=== PATIENT | female | born 1985 | race Caucasian/White ===

== ENCOUNTER 2016-06-09 22:35 | Inpatient (IN) | payer BC ==
[~2016-06-09] VITALS: Ht 167.6 cm; Wt 81.6 kg
[~2016-06-09 22:35] MED LIST: PREN1TAB63
[2016-06-09 22:49] VITALS: BP 129/69; PULSE 84
[2016-06-09 23:00] VITALS: RESP 18; TEMP 98
[2016-06-09] MEDS ORDERED: LACTATED RINGER'S 1000 ML INJ 1,000 ML IV PRN (23:05)
[2016-06-09] MEDS ORDERED: OXYTOCIN 30 UNITS-500ML PREMIX 500 ML IV ONE (23:15)
[2016-06-09] MEDS ORDERED: LIDOCAINE HCL 1% 50 ML VIAL I-DERMAL PRN (23:15)
[2016-06-09] MEDS ORDERED: MINERAL OIL 10 ML VIAL TOPICAL PRN (23:15)
[2016-06-09] MEDS ORDERED: CITRIC ACID-SODIUM CITRATE LIQ 30 ML UDC PO SCH (23:15)
[2016-06-09] MEDS ORDERED: LIDOCAINE HCL 1% 50 ML VIAL INFIL PRN (23:15)
[2016-06-09] MEDS ORDERED: ONDANSETRON HCL 4 MG/2 ML VIAL IV PRN (23:15)
[2016-06-09] MEDS ORDERED: SODIUM CHLORID 0.9% 500 ML INJ 500 ML IV PRN (23:15)
[2016-06-09 23:19] LABS: AUTOMATED NEUTROPHIL # 10.3 TH/MM3 (1.8-7.7); BASOPHIL # 0.1 TH/MM3 (0-0.2); BASOPHIL % 0.6 % (0.0-2.0); EOSINOPHIL % 0.1 % (0.0-4.0); HEMO FLAGS DIFF FINAL; LYMPH % 10.3 % (9.0-44.0); LYMPHOCYTE # 1.3 TH/MM3 (1.0-4.8); MEAN CELL VOLUME 86.9 FL (80.0-100.0); MEAN CORPUSCULAR HEMOGLOBIN 29.5 PG (27.0-34.0); MONO % 5.9 % (0.0-8.0); NEUT % 83.1 % (16.0-70.0); PLATELET COUNT 147 TH/MM3 (150-450); RED BLOOD COUNT 4.25 MIL/MM3 (4.00-5.30); RED CELL DISTRIBUTION WIDTH 14.2 % (11.6-17.2); WHITE BLOOD COUNT 12.5 TH/MM3 (4.0-11.0)
[2016-06-09] MEDS ORDERED: SODIUM CHLOR 0.9% 1000 ML INJ 1,000 ML IV PRN (23:25)
[2016-06-09 23:31] LABS: BACTERIA, URINE RARE /hpf; BLOOD, URINE NEG (NEG); COMMENT (UR) CULT NOT INDICATED; CULTURE IF INDICATED CULT NOT INDICATED; GLUCOSE,URINE NEG (NEG); KETONE, URINE NEG (NEG); NITRITE,URINE NEG (NEG); PH, URINE 6.5 (5.0-8.5); SQUAMOUS EPITHELIAL CELL URINE <1 /hpf (0-5); URINE COLOR LIGHT-YELLOW (YELLW/STRAW)
--- NOTE | 2016-06-09 23:47 | PD ---
HPI Chief Complaint Labor pain Date Seen: Jun 09, 2016 Travel History International Travel<30 Days: No Contact w/Intl Traveler<30Days: No Known Affected Area: No History of Present Illness HPI Liz is a 30-year-old white female at 40 weeks gestation since complaining of contractions denies bleeding or rupture the membranes heart rate tracing is reactive contractions are regular. She is [facility] by [facility]. Para: 0 : 1 History Past Medical History Medical History: Denies Significant Hx Allergies-Medications (Allergen,Severity, Reaction): Coded Allergies: No Known Allergies (Unverified , 06/09/16) Home Meds Reported Medications Multivit-Min W/Fe-FA ( Vitamins 0.8 mg)1 Tab Tab 04/23/16 Review of Systems General / Constitutional: No: Fever, Weight Gain, Chills, Other Physical Exam Narrative GENERAL: Well-nourished, well-developed patient. SKIN: Warm and dry. HEAD: Normocephalic and atraumatic. EYES: No scleral icterus. No injection or drainage. ENT: No nasal drainage noted. Mucous membranes pink. Airway patent. NECK: Supple, trachea midline. No JVD. CARDIOVASCULAR: Regular rate and rhythm without murmurs, gallops, or rubs. RESPIRATORY: Breath sounds equal bilaterally. No accessory muscle use. BREASTS: Bilateral exam showed no masses , no retractions, no nipple discharge. ABDOMEN/GI: Abdomen soft, non-tender, bowel sounds present, no rebound, no guarding Gravid to [term-] weeks size Fundal Height: [-37 cm] GENITOURINARY: External Genitalia: intact and normal in appearance BUS glands: [-] Cervix: Dilatation: [-5] Effacement: [-80] Station: [-0] Presentation: [-vtx] Membranes: [intact ] Uterine Contractions: [-reg] FHT's: Category: [1-] Baseline: [-144] Reactive: [-yes] Variability: [mod-] Decels: [none-] EXTREMITIES: No cyanosis or edema. BACK: Nontender without obvious deformity. No CVA tenderness. NEUROLOGICAL: Awake and alert. Motor and sensory grossly within normal limits. Five out of 5 muscle strength in all muscle groups. Normal speech. Data Data Orders Ob (2e) Additional Admit Info (06/09/16 23:00) Admit To Inpatient (06/09/16 ) Code Status (06/09/16 23:05) Vital Signs (Adult) .Per protocol (06/09/16 23:05) Activity Oob Ad Kitty (06/09/16 23:05) ^ Heart (06/09/16 23:05) ^ Amnioinfusion (06/09/16 23:05) Urinary Catheter Management .ONCE (06/09/16 23:05) Lactated Ringer's 1000 Ml Inj (Lr 1000 M (06/09/16 23:05) Lactated Ringer's 1000 Ml Inj (Lr 1000 M (06/09/16 23:05) Sodium Chlorid 0.9% 500 Ml Inj (Ns 500 M (06/09/16 23:15) Sodium Chlor 0.9% 1000 Ml Inj (Ns 1000 M (06/09/16 23:25) Lidocaine 1% Inj (50 Ml) (Xylocaine 1% I (06/09/16 23:15) Citric Acid-Sodium Citrate Liq (Bicitra (06/09/16 23:15) Ondansetron Inj (Zofran Inj) (06/09/16 23:15) Fentanyl Inj (Fentanyl Inj) (06/09/16 23:15) Fentanyl Inj (Fentanyl Inj) (06/09/16 23:15) Complete Blood Count With Diff (06/09/16 23:05) Hold Clot (06/09/16 23:05) Abo/Rh Blood Type (06/09/16 23:05) Urinalysis - C+S If Indicated (06/09/16 23:05) Resp Oxygen Non Rebreathe Mask (06/09/16 ) ^ Epidural / Intrathecal Infus (06/09/16 23:05) Oxytocin 30 Units-500ml Premix (Pitocin (06/09/16 23:15) Lidocaine 1% Inj (50 Ml) (Xylocaine 1% I (06/09/16 23:15) Light Mineral Oil (Muri-Lube Oil) (06/09/16 23:15) Inpatient Certification (06/09/16 ) Labs Laboratory Tests Test 06/09/16 06/09/16 22:45 23:05 Urine Color LIGHT-YELLOW Urine Turbidity CLEAR Urine pH 6.5 Urine Specific [place] 1.005 Urine Protein NEG Urine Glucose (UA) NEG Urine Ketones NEG Urine Occult Blood NEG Urine Nitrite NEG Urine Bilirubin NEG Urine Urobilinogen LESS THAN 2.0 Urine Leukocyte Esterase NEG Urine WBC LESS THAN 1 Urine Squamous Epithelial <1 Cells Urine Bacteria RARE Microscopic Urinalysis Comment CULT NOT INDICATED White Blood Count 12.5 Red Blood Count 4.25 Hemoglobin 12.5 Hematocrit 37.0 Mean Corpuscular Volume 86.9 Mean Corpuscular Hemoglobin 29.5 Mean Corpuscular Hemoglobin 34.0 Concent Red Cell Distribution Width 14.2 Platelet Count 147 Mean Platelet Volume 11.6 Neutrophils (%) (Auto) 83.1 Lymphocytes (%) (Auto) 10.3 Monocytes (%) (Auto) 5.9 Eosinophils (%) (Auto) 0.1 Basophils (%) (Auto) 0.6 Neutrophils # (Auto) 10.3 Lymphocytes # (Auto) 1.3 Monocytes # (Auto) 0.7 Eosinophils # (Auto) 0.0 Basophils # (Auto) 0.1 CBC Comment DIFF FINAL Differential Comment MDM Interpretation(s) Patient is 30-year-old white female at 40 weeks gestation presents in labor with regular contractions no bleeding reactive heart rate tracing and cervical dilation of 5-6 cm 80% and 0 station. Membranes intact. She is seen by [facility] Dariela Carrillo Plan Plan to admit for labor evaluation and management in anticipate vaginal delivery Diagnosis Diagnosis: Primary Impression: Abdominal pain complicating Raheem Sutherland II, MD Jun 09, 2016 23:47
[2016-06-10] VITALS (75 sets, daily range): BP systolic 101–152; BP diastolic 54–84; PULSE 56–99; RESP 16–18; TEMP 98.7–100.2; O2SAT 100
--- NOTE | 2016-06-10 00:09 | HHI.HP ---
HPI Date Seen: Jun 09, 2016 Time Seen: 23:15 Travel History International Travel<30 Days: No Contact w/Intl Traveler<30Days: No Known Affected Area: No History of Present Illness HPI 30 y/o at 40/0 presents with contractions. States they started this morning and increased throughout the day. They were about 4 minutes apart. Noticed mucus discharge earlier today with some mild vaginal bleeding. Pain in lower abdomen and back. Endorses pelvic pressure. Reports good movement. Denies loss of fluid. Is GBS negative. Denies headache, blurry vision, RUQ abdominal pain, worsening swelling. No chest pain, SOB, nausea/vomiting. Para: 0 : 1 History Past Medical History Medical History: Denies Significant Hx Obstetric History Obstetric History none Past Surgical History Surgical History: No Previous Surgery Family History Family History: Negative Social History Alcohol Use: No Tobacco Use: No Substance Abuse: No Allergies-Medications (Allergen,Severity, Reaction): Coded Allergies: No Known Allergies (Unverified , 06/09/16) Home Meds Reported Medications Multivit-Min W/Fe-FA ( Vitamins 0.8 mg)1 Tab Tab 04/23/16 Review of Systems Except as stated in HPI: all other systems reviewed are Neg General / Constitutional: Weight Gain, No: Fever, Weight Loss, Chills Eyes: No: Blurred Vision, Visual changes HENT: No: Headaches, Lightheadedness Cardiovascular: No: Irregular Rhythm, Chest Pain or Discomfort Respiratory: No: Cough, Short of Breath Gastrointestinal: No: Nausea, Vomiting, Abdominal Pain Genitourinary: Pelvic Pain, Discharge, Vaginal Bleeding, No: Dysuria Skin: No Rash, No Itching Neurologic: No: Weakness, Dizziness, Syncope, Headache, Slurred Speech, Seizures Psychiatric: No: Anxiety, Depression Physical Exam Narrative GENERAL: Well-nourished, well-developed patient. SKIN: Warm and dry. HEAD: Normocephalic and atraumatic. EYES: No scleral icterus. No injection or drainage. ENT: No nasal drainage noted. Mucous membranes pink. Airway patent. NECK: Supple, trachea midline. No JVD. CARDIOVASCULAR: Regular rate and rhythm without murmurs, gallops, or rubs. RESPIRATORY: Breath sounds equal bilaterally. No accessory muscle use. ABDOMEN/GI: Abdomen soft, non-tender, bowel sounds present, no rebound, no guarding Gravid to 40 weeks size Fundal Height: 40 GENITOURINARY: External Genitalia: intact and normal in appearance Cervix: Posterior Dilatation: 5-6 Effacement: 90 Station: 0 Presentation: vertex Membranes: intact Uterine Contractions: 4 minutes FHT's: Category: 1 Baseline: 150 Reactive: up to 160 Variability: minimal to moderate Decels: none EXTREMITIES: No cyanosis or edema. BACK: Nontender without obvious deformity. No CVA tenderness. NEUROLOGICAL: Awake and alert. Motor and sensory grossly within normal limits. Moving all limbs appropriately. Normal speech. Data Data Vital Signs Reviewed: Yes Orders Ob (2e) Additional Admit Info (06/09/16 23:00) Admit To Inpatient (06/09/16 ) Code Status (06/09/16 23:05) Vital Signs (Adult) .Per protocol (06/09/16 23:05) Activity Oob Ad Kitty (06/09/16 23:05) ^ Heart (06/09/16 23:05) ^ Amnioinfusion (06/09/16 23:05) Urinary Catheter Management .ONCE (06/09/16 23:05) Lactated Ringer's 1000 Ml Inj (Lr 1000 M (06/09/16 23:05) Lactated Ringer's 1000 Ml Inj (Lr 1000 M (06/09/16 23:05) Sodium Chlorid 0.9% 500 Ml Inj (Ns 500 M (06/09/16 23:15) Sodium Chlor 0.9% 1000 Ml Inj (Ns 1000 M (06/09/16 23:25) Lidocaine 1% Inj (50 Ml) (Xylocaine 1% I (06/09/16 23:15) Citric Acid-Sodium Citrate Liq (Bicitra (06/09/16 23:15) Ondansetron Inj (Zofran Inj) (06/09/16 23:15) Fentanyl Inj (Fentanyl Inj) (06/09/16 23:15) Fentanyl Inj (Fentanyl Inj) (06/09/16 23:15) Complete Blood Count With Diff (06/09/16 23:05) Hold Clot (06/09/16 23:05) Abo/Rh Blood Type (06/09/16 23:05) Urinalysis - C+S If Indicated (06/09/16 23:05) Resp Oxygen Non Rebreathe Mask (06/09/16 ) ^ Epidural / Intrathecal Infus (06/09/16 23:05) Oxytocin 30 Units-500ml Premix (Pitocin (06/09/16 23:15) Lidocaine 1% Inj (50 Ml) (Xylocaine 1% I (06/09/16 23:15) Light Mineral Oil (Muri-Lube Oil) (06/09/16 23:15) Inpatient Certification (06/09/16 ) Labs Laboratory Tests Test 06/09/16 06/09/16 22:45 23:05 Urine Color LIGHT-YELLOW Urine Turbidity CLEAR Urine pH 6.5 Urine Specific [place] 1.005 Urine Protein NEG Urine Glucose (UA) NEG Urine Ketones NEG Urine Occult Blood NEG Urine Nitrite NEG Urine Bilirubin NEG Urine Urobilinogen LESS THAN 2.0 Urine Leukocyte Esterase NEG Urine WBC LESS THAN 1 Urine Squamous Epithelial <1 Cells Urine Bacteria RARE Microscopic Urinalysis Comment CULT NOT INDICATED White Blood Count 12.5 Red Blood Count 4.25 Hemoglobin 12.5 Hematocrit 37.0 Mean Corpuscular Volume 86.9 Mean Corpuscular Hemoglobin 29.5 Mean Corpuscular Hemoglobin 34.0 Concent Red Cell Distribution Width 14.2 Platelet Count 147 Mean Platelet Volume 11.6 Neutrophils (%) (Auto) 83.1 Lymphocytes (%) (Auto) 10.3 Monocytes (%) (Auto) 5.9 Eosinophils (%) (Auto) 0.1 Basophils (%) (Auto) 0.6 Neutrophils # (Auto) 10.3 Lymphocytes # (Auto) 1.3 Monocytes # (Auto) 0.7 Eosinophils # (Auto) 0.0 Basophils # (Auto) 0.1 CBC Comment DIFF FINAL Differential Comment Blood Type O NEGATIVE Band and Hold Assessment/Plan Problem List: (1) Abdominal pain complicating (2) 40 weeks gestation of Assessment and Plan 30 y/o at 40/0 presents with contractions. 1) IUP: GBS negative, laboring - Continuous heart tracing: Category 1 - Continuous monitoring for contractions - Plan to perform PROM - Continue expectant management - Pain control with epidural dw Dr. Sutherland Discharge Planning To be determined after delivery Rj Beltrán MD R1 Jun 10, 2016 00:09
[2016-06-10] MEDS ORDERED: fentaNYL 2MCG-BUPIV 0.125% INJ 100 ML ONE (00:11)
[2016-06-10] MEDS ORDERED: ePHEDrine/NS 50 MG/5 ML SYR ONE (00:11)
[2016-06-10] MEDS: LACTATED RINGER'S 1000 ML INJ 1,000 ML IV SCH ×2 (00:23→07:40)
[2016-06-10] MEDS ORDERED: ePHEDrine/NS 50 MG/5 ML SYR IV PRN (00:30)
[2016-06-10] MEDS ORDERED: fentaNYL 2MCG-BUPIV 0.125% INJ 100 ML EPIDURAL SCH (00:30)
[2016-06-10] MEDS ORDERED: NO SYSTEM NARCOTICS XX PRN (00:30)
[2016-06-10] MEDS ORDERED: DO NOT ADMINISTER ANTICOAGULANTS XX PRN (00:30)
--- NOTE | 2016-06-10 07:38 | PD.LABORPN ---
Subjective Subjective 30-year-old white female at 40 weeks gestation followed through [facility] now in labor through the night. She presented 5-6 cm on admission was admitted of had artificial rupture the membranes and was marik regularly. Her heart rate tracing was reactive throughout. Occasionally would have of a heart rate deceleration was sporadic but the variability always was very good. She has had a arrest of labor in the second stage. She achieved cervical cervical dilation and has pushed for greater than 2 hours. Baby is in a persistent OP position and has development of a large amount Of caput and molding.. The head is still at -1 station, caput At +1 station . Situation discussed with family and patient understand the need for section delivery for failure to progress and arrest of labor in the second stage due to persistent OP Objective Vital Signs Vital Signs Date Time Temp Pulse Resp B/P Pulse Ox O2 Delivery O2 Flow Rate FiO2 06/10/16 06:24 18 06/10/16 06:20 98 06/10/16 06:15 69 136/72 06/10/16 06:00 67 135/76 06/10/16 05:59 99.0 18 06/10/16 05:55 69 06/10/16 05:50 66 06/10/16 05:46 67 127/72 06/10/16 05:45 75 06/10/16 05:35 98.7 06/10/16 05:31 72 152/60 06/10/16 05:30 73 06/10/16 05:25 62 06/10/16 05:20 68 06/10/16 05:16 69 130/69 06/10/16 05:15 99 06/10/16 05:15 18 06/10/16 05:10 71 06/10/16 05:00 72 06/10/16 05:00 72 119/66 06/10/16 04:55 76 06/10/16 04:50 76 06/10/16 04:45 70 116/69 06/10/16 04:45 74 06/10/16 04:36 99.3 06/10/16 04:35 70 06/10/16 04:30 78 06/10/16 04:30 74 18 111/68 06/10/16 04:25 68 06/10/16 04:20 79 06/10/16 04:15 70 06/10/16 04:15 86 125/75 06/10/16 04:05 70 06/10/16 04:00 66 06/10/16 04:00 66 118/66 06/10/16 03:55 89 06/10/16 03:50 79 06/10/16 03:47 74 107/61 06/10/16 03:45 72 06/10/16 03:30 113/72 06/10/16 03:30 70 06/10/16 03:30 68 06/10/16 03:25 65 06/10/16 03:20 75 06/10/16 03:15 67 06/10/16 03:15 66 112/69 06/10/16 03:07 99.4 18 06/10/16 03:05 64 06/10/16 03:00 68 112/63 06/10/16 03:00 71 06/10/16 02:55 74 06/10/16 02:50 72 06/10/16 02:45 70 06/10/16 02:45 70 101/66 06/10/16 02:42 18 06/10/16 02:40 75 06/10/16 02:35 74 06/10/16 02:30 74 06/10/16 02:30 74 109/67 06/10/16 02:20 74 06/10/16 02:15 79 06/10/16 02:15 90 132/78 06/10/16 02:01 18 06/10/16 02:00 86 06/10/16 02:00 85 135/84 06/10/16 01:51 18 06/10/16 01:50 87 06/10/16 01:46 83 115/59 06/10/16 01:45 65 06/10/16 01:20 71 06/10/16 01:15 64 112/54 06/10/16 01:15 56 06/10/16 01:00 67 06/10/16 00:45 67 06/10/16 00:30 75 122/70 06/10/16 00:26 18 06/10/16 00:25 83 127/71 06/10/16 00:23 18 06/10/16 00:20 84 135/78 06/10/16 00:15 92 131/83 Objective Pelvic Exam: Cervix: [-] Dilatation: [-] Effacement: [-] Station: [-] Presentation: [-] Membranes: [intact or ruptured] Uterine Contractions: [-] FHT's: Category: [-] Baseline: [-] Reactive: [-] Variability: [-] Decels: [-] Assessment/Plan Problem List: (1) Abdominal pain complicating (2) 40 weeks gestation of Raheem Sutherland II, MD Jun 10, 2016 07:37
[2016-06-10] MEDS ORDERED: ceFAZolin INJ 1,000 MG VIAL ONE (07:43)
[2016-06-10] MEDS ORDERED: OXYTOCIN 10 UNIT/ML AMP ONE (07:43)
[2016-06-10] MEDS ORDERED: MORPHINE SULFATE PF 5 MG/10 ML VIAL ONE (08:59)
[2016-06-10] MEDS ORDERED: OXYTOCIN 30 UNITS-500ML PREMIX 500 ML IV ONE (09:00)
[2016-06-10] MEDS: SODIUM CHLORIDE 0.9% FLUSH 5 ML FLUSH IV SCH ×2 (09:00→21:00)
[2016-06-10] MEDS ORDERED: SIMETHICONE 80 MG CHEWABLE TAB PO PRN (09:00)
[2016-06-10] MEDS ORDERED: DOCUSATE SODIUM 50 MG/SENNA 8.6 MG TAB PO PRN (09:00)
[2016-06-10] MEDS ORDERED: oxyCODONE/ACETAMINOPHEN 5 MG/325 MG TAB PO PRN ×2 (09:00)
[2016-06-10] MEDS ORDERED: KETOROLAC TROMETHAMINE 60 MG/2 ML (IM) VIAL IM PRN (09:00)
[2016-06-10] MEDS ORDERED: ONDANSETRON HCL 4 MG/2 ML VIAL IV PUSH PRN (09:00)
[2016-06-10] MEDS ORDERED: SODIUM CHLORIDE 0.9% FLUSH 5 ML FLUSH IV PRN (09:00)
[2016-06-10] MEDS ORDERED: OXYTOCIN 30 UNITS-500ML PREMIX 500 ML ONE (09:39)
--- NOTE | 2016-06-10 09:41 | MP ---
cc: LYDIA SUTHERLAND MD DATE OF SURGERY: 06/10/2016 PREOPERATIVE DIAGNOSIS: Failure to progress, persistent OP position. POSTOPERATIVE DIAGNOSIS: Failure to progress, persistent OP position. PROCEDURE PERFORMED: Primary low transverse section. SURGEON Dr. Sutherland. INFORMATICS NURSE air analysis technician. ANESTHESIA Epidural. PREOP NOTE The patient is a 30-year-old white female, G1, P0 at 40-weeks gestation, who presented in active labor 5-6 cm. She progressed to complete and pushed for greater than 2 hours with the baby in a persistent OP presentation with development of caput and molding and failure to the presenting part to descend in the pelvis. It was felt that section would be needed for arrest of labor due to persistent OP. PROCEDURE The patient was taken to the operating room and placed in the supine position on the operating table. After adequate epidural anesthesia was administered she was prepped and draped for abdominal surgery. A Pfannenstiel incision was made in the lower abdomen and carried to the fascia sharply. The fascia was dissected off the rectus muscle and rectus split in the midline. The peritoneal cavity was entered sharply and the incision was extended superiorly and inferiorly. The opening was stretched open and the bladder blade placed in the lower edge of the incision. The visceral peritoneum reflected off the lower uterine segment and placed on the bladder blade. A transverse hysterotomy was made and extended bluntly bilaterally and a female infant was delivered and was in a straight up OP position. The baby is female, Apgars 9 and 9, weight 3365 grams. There were no complications of delivery. Cord blood was obtained. Placenta was manually extracted. The uterus was exteriorized and the hysterotomy closed in a running layer of 0-Chromic followed by imbricating suture of the same. Hemostasis was achieved with stick tie. The bladder was reapproximated with a running layer of 2-0 Vicryl. The uterus was elevated and blood suctioned from the cul-de-sac and gutters. The uterus was placed in the peritoneal cavity. The parietal peritoneum was closed in running layer of 2-0 Vicryl. The rectus muscle was reapproximated with stick ties of Chromic. The fascia was then closed with running layer of 0-Vicryl. The skin was closed with 4-0 Monocryl subcuticular stitch. Pressure dressing was applied. Estimated blood loss was 500 ccs. There were no complications. Sponge and needle count were correct x2. The patient was taken to recovery in stable condition. The baby doing well in the baby nursery. MD RANDAL Powers/LIZZY /8:57 AM /9:13 AM
[2016-06-10] MEDS ORDERED: EPIDURAL-DIPHENHYDRAMINE HCL 50 MG/ML VIAL IV PUSH PRN (11:45)
[2016-06-10] MEDS ORDERED: EPIDURAL-NO SYSTEMIC NARCOTICS XX PRN (11:45)
[2016-06-10] MEDS ORDERED: EPIDURAL-DIPHENHYDRAMINE HCL 50 MG CAP PO PRN (11:45)
[2016-06-10] MEDS ORDERED: EPIDURAL-DO NOT ADMINISTER ANTICOAGULANTS XX PRN (11:45)
[2016-06-10] MEDS ORDERED: EPIDURAL-NALOXONE HCL 0.4 MG/ML AMP IV PRN (11:45)
[2016-06-10] MEDS ORDERED: LACTATED RINGER'S 1000 ML INJ 1,000 ML IV SCH (13:58)
[2016-06-10] MEDS ORDERED: OXYTOCIN 30 UNITS-500ML PREMIX 500 ML IV PRN (19:00)
[2016-06-11] MEDS: IBUPROFEN 600 MG TAB PO PRN ×4 (00:13→20:53)
[2016-06-11 05:57] LABS: AUTOMATED NEUTROPHIL # 9.8 TH/MM3 (1.8-7.7); BASOPHIL % 0.2 % (0.0-2.0); EOSINOPHIL % 0.2 % (0.0-4.0); HEMATOCRIT 32.5 % (35.0-46.0); HEMO FLAGS DIFF FINAL; LYMPH % 7.9 % (9.0-44.0); LYMPHOCYTE # 0.9 TH/MM3 (1.0-4.8); MEAN CELL VOLUME 88.2 FL (80.0-100.0); MEAN CORPUSCULAR HEMOGLOBIN 29.9 PG (27.0-34.0); MEAN CORPUSCULAR HGB CONC 33.9 % (32.0-36.0); MONO % 6.1 % (0.0-8.0); NEUT % 85.6 % (16.0-70.0); PLATELET COUNT 128 TH/MM3 (150-450); RED BLOOD COUNT 3.68 MIL/MM3 (4.00-5.30); RED CELL DISTRIBUTION WIDTH 14.7 % (11.6-17.2); WHITE BLOOD COUNT 11.4 TH/MM3 (4.0-11.0)
[2016-06-11 08:00] VITALS: BP 111/68; PULSE 78; RESP 18; TEMP 98.3
[2016-06-11] MEDS: ACETAMINOPHEN 325 MG TAB PO PRN ×3 (08:05→20:53)
--- NOTE | 2016-06-11 10:02 | HHI.OB ---
Subjective Post Operative Day: 1 Remarks Postoperative day number 1. AFVSS overnight. Pain well-controlled. Incision not draining. Decreased lochia. Denies dysuria. No breast tenderness. She is feeding the baby via breast. Appetite good. No nausea or vomiting. Endorses flatus. Denies bowel movement. Ambulating well. Denies calf pain, shortness of breath, or cough. Otherwise, she is doing well this morning and has no other complaints. (Rj Beltrán MD R1) Objective Vitals/I&O Vital Signs Date Time Temp Pulse Resp B/P Pulse Ox O2 Delivery O2 Flow Rate FiO2 06/11/16 08:00 98.3 78 18 111/68 06/11/16 01:50 18 06/10/16 16:50 99.0 82 18 114/66 06/10/16 13:20 99.4 06/10/16 11:25 100.2 75 16 122/70 (Rj Beltrán MD R1) Result Diagram: 06/11/16 0541 Objective Remarks GENERAL: Well-nourished, well-developed patient. CARDIOVASCULAR: Regular rate and rhythm without murmurs, gallops, or rubs. RESPIRATORY: Breath sounds equal bilaterally. No accessory muscle use. ABDOMEN/GI: Abdomen soft, non-tender, bowel sounds present. Incision: Clean, dry and intact. Fundus: Firm, non-tender at umbilicus. GENITOURINARY: Light to moderate bleeding. EXTREMITIES: No cyanosis or edema, non-tender, without signs of DVT. Medications and IVs Current Medications Medications (Trade) Dose Ordered Sig/Chritsoph Route Start Time Stop Time Status Last Admin Lactated Ringer's 1,000 ml @ 125 mls/hr Q8H IV 06/09/16 23:05 06/10/16 07:40 Lactated Ringer's 1,000 ml @ 3,000 mls/hr Q20M PRN IV 06/09/16 23:05 (NS 1000 ml Inj) 1,000 ml @ 100 mls/hr Q10H PRN IV 06/09/16 23:25 (fentaNYL INJ) 50 mcg Q1H PRN IV PUSH 06/09/16 23:15 (fentaNYL INJ) 100 mcg Q1H PRN IV PUSH 06/09/16 23:15 Mineral Oil 10 ml 10 ml UNSCH PRN TOPICAL 06/09/16 23:15 (fentaNYL 2MCG-BUPIV 0.125% INJ) 100 ml @ 0 mls/hr TITRATE EPIDURAL 06/10/16 00:30 06/10/16 07:41 (NS Flush) 2 ml BID IV 06/10/16 09:00 (NS Flush) 2 ml UNSCH PRN IV 06/10/16 09:00 06/11/16 00:14 (Mylicon Chew) 80 mg QID PRN PO 06/10/16 09:00 06/11/16 08:05 (Tylenol) 650 mg Q6H PRN PO 06/10/16 09:00 06/11/16 08:05 (Motrin) 600 mg Q6H PRN PO 06/10/16 09:00 06/11/16 08:05 (Percocet 5-325 Mg) 1 tab Q4H PRN PO 06/10/16 09:00 (Percocet 5-325 Mg) 2 tab Q4H PRN PO 06/10/16 09:00 (Luisa-Colace) 2 tab Q12H PRN PO 06/10/16 09:00 06/11/16 00:13 (M-M-R Ii Inj) 0.5 ml ONCE ONCE SQ 06/11/16 16:00 06/11/16 16:01 (Boostrix Inj) 0.5 ml ONCE ONCE IM 06/11/16 16:00 06/11/16 16:01 (Zofran Inj) 4 mg Q6H PRN IV PUSH 06/10/16 09:00 Miscellaneous Information NO SYSTEMIC NARCOTICS TO BE GIVEN FO... UNSCH PRN XX 06/10/16 11:45 06/11/16 11:44 (Narcan Inj) 0.4 mg UNSCH PRN IV 06/10/16 11:45 06/11/16 11:44 (Benadryl Inj) 25 mg Q6H PRN IV PUSH 06/10/16 11:45 06/11/16 11:44 (Benadryl) 50 mg Q6H PRN PO 06/10/16 11:45 06/11/16 11:44 Miscellaneous Information ALL NURSING DEPARTMENTS UNSCH PRN XX 06/10/16 11:45 06/11/16 11:44 (Rj Beltrán MD R1) Assessment/Plan Problem List: (1) Abdominal pain complicating (2) 40 weeks gestation of Assessment and Plan 30y/o female who is POD#1 s/p CXN. -Continue routine care. -Percocet and Motrin PRN pain. -Encouraged OOB. Advised pelvic rest for 6 wks. Will need a f/u appt. in 1 wk for incision check. -Re: ctrl, she is undecided -D/c in 1-[address] Mojica Discharge Planning In 1-2 days (Rj Beltrán MD R1) Attending Attestation The exam, history, and the medical decision-making described in the above note were completed with the assistance of the resident provider. I reviewed and agree with the findings presented. I attest that I had a efei-tu-nedy encounter with the patient on the same day, and personally performed and documented my assessment and findings in the medical record. (Gladys Mojica MD) Rj Beltrán MD R1 Jun 11, 2016 10:02 Gladys Mojica MD Jun 11, 2016 10:08
[2016-06-11] MEDS ORDERED: MEASLES, MUMPS, RUBELLA VACCINE 0.5 ML VIAL SQ ONE (16:00)
[2016-06-11] MEDS ORDERED: DIPHTH/TETANUS/ACEL PERTUSSIS (BOOSTER) 0.5 ML VIAL/PFS IM ONE (16:00)
[2016-06-11 20:40] VITALS: BP 121/69; PULSE 80; RESP 18; TEMP 98.6
[2016-06-12] MEDS: IBUPROFEN 600 MG TAB PO PRN ×2 (03:07→09:49)
[2016-06-12] MEDS: ACETAMINOPHEN 325 MG TAB PO PRN ×2 (03:07→09:49)
[2016-06-12 04:07] VITALS: RESP 16
[2016-06-12] MEDS ORDERED: IBUP-232 PO (07:15)
[2016-06-12] MEDS ORDERED: OXYC1TAB63 PO (07:15)
[2016-06-12] MEDS ORDERED: SENN1TAB PO (07:15)
[2016-06-12] MEDS ORDERED: SIME80CH PO (07:15)
--- NOTE | 2016-06-12 07:16 | HHI.DCPOC ---
Discharge Care Plan Diagnosis: (1) delivery delivered Goals to Promote Your Health * To prevent worsening of your condition and complications * To maintain your health at the optimal level Directions to Meet Your Goals Take your medications as prescribed Follow your dietary instruction Follow activity as directed Keep your appointments as scheduled Take your immunizations and boosters as scheduled If your symptoms worsen call your PCP, if no PCP go to Urgent Care Center or Emergency Room Smoking is Dangerous to Your Health. Avoid second hand smoke Call the 24-hour hour crisis hotline for domestic abuse at Dave Fuller MD R2 Jun 12, 2016 07:16
--- NOTE | 2016-06-12 08:14 | HHI.OB ---
Subjective Post Operative Day: 2 Remarks Postoperative day number 2. AFVSS overnight. Pain well-controlled. Incision not draining. Decreased lochia. Denies dysuria. No breast tenderness. She is feeding the baby via breast. Appetite good. No nausea or vomiting. Endorses flatus. Denies bowel movement. Ambulating well. Denies calf pain, shortness of breath, or cough. Otherwise, she is doing well this morning and has no other complaints. Objective Vitals/I&O Vital Signs Date Time Temp Pulse Resp B/P Pulse Ox O2 Delivery O2 Flow Rate FiO2 06/12/16 04:07 16 06/12/16 04:07 16 06/11/16 20:40 98.6 18 06/11/16 20:40 80 121/69 Result Diagram: 06/11/16 0541 Objective Remarks GENERAL: Well-nourished, well-developed patient. CARDIOVASCULAR: Regular rate and rhythm without murmurs, gallops, or rubs. RESPIRATORY: Breath sounds equal bilaterally. No accessory muscle use. ABDOMEN/GI: Abdomen soft, non-tender, bowel sounds present. Incision: Clean, dry and intact. Fundus: Firm, non-tender at umbilicus. GENITOURINARY: Light to moderate bleeding. EXTREMITIES: No cyanosis or edema, non-tender, without signs of DVT. Medications and IVs Current Medications Medications (Trade) Dose Ordered Sig/Christoph Route Start Time Stop Time Status Last Admin Lactated Ringer's 1,000 ml @ 125 mls/hr Q8H IV 06/09/16 23:05 06/10/16 07:40 Lactated Ringer's 1,000 ml @ 3,000 mls/hr Q20M PRN IV 06/09/16 23:05 (NS 1000 ml Inj) 1,000 ml @ 100 mls/hr Q10H PRN IV 06/09/16 23:25 (fentaNYL INJ) 50 mcg Q1H PRN IV PUSH 06/09/16 23:15 (fentaNYL INJ) 100 mcg Q1H PRN IV PUSH 06/09/16 23:15 Mineral Oil 10 ml 10 ml UNSCH PRN TOPICAL 06/09/16 23:15 (fentaNYL 2MCG-BUPIV 0.125% INJ) 100 ml @ 0 mls/hr TITRATE EPIDURAL 06/10/16 00:30 06/10/16 07:41 (NS Flush) 2 ml BID IV 06/10/16 09:00 (NS Flush) 2 ml UNSCH PRN IV 06/10/16 09:00 06/11/16 00:14 (Mylicon Chew) 80 mg QID PRN PO 06/10/16 09:00 06/11/16 08:05 (Tylenol) 650 mg Q6H PRN PO 06/10/16 09:00 06/12/16 03:07 (Motrin) 600 mg Q6H PRN PO 06/10/16 09:00 06/12/16 03:07 (Percocet 5-325 Mg) 1 tab Q4H PRN PO 06/10/16 09:00 (Percocet 5-325 Mg) 2 tab Q4H PRN PO 06/10/16 09:00 (Luisa-Colace) 2 tab Q12H PRN PO 06/10/16 09:00 06/11/16 00:13 (Zofran Inj) 4 mg Q6H PRN IV PUSH 06/10/16 09:00 (Flu (Quadrivalent) Vaccine Inj) 0.5 ml ONCE ONCE IM 06/12/16 09:00 06/12/16 09:01 06/11/16 20:55 Assessment/Plan Problem List: (1) Abdominal pain complicating (2) 40 weeks gestation of Assessment and Plan 30y/o female who is POD#2 s/p CXN. -Continue routine care. -Percocet and Motrin PRN pain. -Encouraged OOB. Advised pelvic rest for 6 wks. Will need a f/u appt. in 1 wk for incision check. -Re: ctrl, she is undecided -D/c today wdw OB attending Discharge Planning Today Rj Beltrán MD R1 Jun 12, 2016 08:14
[2016-06-12] MEDS ORDERED: INFLUENZA VIRUS VACCINE (QUADRIVALENT) 0.5 ML SYR IM ONE (09:00)
--- NOTE | 2016-06-12 09:19 | HHI.OB ---
Subjective Post Operative Day: 2 Remarks Postoperative outpatient primary for failure to progress and persistent OP, she is doing well having no problems she is afebrile normal advancement of diet and ambulation and bleeding is minimal. Her incision looks good clean and dry, patient seen with the family medicine residents agree with their evaluation and plan. We will plan to discharge patient I. Objective Vitals/I&O Vital Signs Date Time Temp Pulse Resp B/P Pulse Ox O2 Delivery O2 Flow Rate FiO2 06/12/16 04:07 16 06/12/16 04:07 16 06/11/16 20:40 98.6 18 06/11/16 20:40 80 121/69 Result Diagram: 06/11/16 0541 Objective Remarks GENERAL: Well-nourished, well-developed patient. CARDIOVASCULAR: Regular rate and rhythm without murmurs, gallops, or rubs. RESPIRATORY: Breath sounds equal bilaterally. No accessory muscle use. ABDOMEN/GI: Abdomen soft, non-tender, bowel sounds present. Incision: Clean, dry and intact. Fundus: Firm, non-tender at umbilicus. GENITOURINARY: Light to moderate bleeding. EXTREMITIES: No cyanosis or edema, non-tender, without signs of DVT. Medications and IVs Current Medications Medications (Trade) Dose Ordered Sig/Christoph Route Start Time Stop Time Status Last Admin Lactated Ringer's 1,000 ml @ 125 mls/hr Q8H IV 06/09/16 23:05 06/10/16 07:40 Lactated Ringer's 1,000 ml @ 3,000 mls/hr Q20M PRN IV 06/09/16 23:05 (NS 1000 ml Inj) 1,000 ml @ 100 mls/hr Q10H PRN IV 06/09/16 23:25 (fentaNYL INJ) 50 mcg Q1H PRN IV PUSH 06/09/16 23:15 (fentaNYL INJ) 100 mcg Q1H PRN IV PUSH 06/09/16 23:15 Mineral Oil 10 ml 10 ml UNSCH PRN TOPICAL 06/09/16 23:15 (fentaNYL 2MCG-BUPIV 0.125% INJ) 100 ml @ 0 mls/hr TITRATE EPIDURAL 06/10/16 00:30 06/10/16 07:41 (NS Flush) 2 ml BID IV 06/10/16 09:00 (NS Flush) 2 ml UNSCH PRN IV 06/10/16 09:00 06/11/16 00:14 (Mylicon Chew) 80 mg QID PRN PO 06/10/16 09:00 06/11/16 08:05 (Tylenol) 650 mg Q6H PRN PO 06/10/16 09:00 06/12/16 03:07 (Motrin) 600 mg Q6H PRN PO 06/10/16 09:00 06/12/16 03:07 (Percocet 5-325 Mg) 1 tab Q4H PRN PO 06/10/16 09:00 (Percocet 5-325 Mg) 2 tab Q4H PRN PO 06/10/16 09:00 (Luisa-Colace) 2 tab Q12H PRN PO 06/10/16 09:00 06/11/16 00:13 (Zofran Inj) 4 mg Q6H PRN IV PUSH 06/10/16 09:00 Assessment/Plan Problem List: (1) Abdominal pain complicating (2) 40 weeks gestation of Assessment and Plan 30y/o female who is POD#2 s/p CXN. -Continue routine care. -Percocet and Motrin PRN pain. -Encouraged OOB. Advised pelvic rest for 6 wks. Will need a f/u appt. in 1 wk for incision check. -Re: ctrl, she is undecided -D/c today wdw OB attending Discharge Planning Today Raheem Sutherland II, MD Jun 12, 2016 09:19
== END 2016-06-12 14:51 | disposition home or self-care (01) | DRG 766 ==
LOC: HOBED 22:35 → H2EB 23:00 → H1EA 06-10 10:58
PROVIDERS: ADMIT Obstetrics & Gynecology Maternal & Fetal Medicine; ATTEND Obstetrics & Gynecology Maternal & Fetal Medicine
PROC: 10D00Z1 Extraction of Products of Conception, Low, Open Approach (ICD-10-PCS; principal; 2016-06-10)
DX: O32.8XX0 Maternal care for other malpresentation of fetus, not applicable or unspecified (principal); O76 Abnormality in fetal heart rate and rhythm complicating labor and delivery; O62.1 Secondary uterine inertia; Z37.0 Single live birth; Z3A.40 40 weeks gestation of pregnancy; Z23 Encounter for immunization
CPT/HCPCS: 81001; 85025; 85461; 86850; 86900; 86901; 90384; 90686; 90715; 99285; J0690; J2274; J2590; J2790; J7120; Q2038

== ENCOUNTER → 2017-09-25 | Outpatient (CLI) | payer OTHER ==
[~2017-09-25] MED LIST changes: +NORE1CAP PO; -PREN1TAB63; +SPRI28TA PO
== END ==
LOC: HPND 12:09
PROVIDERS: ATTEND Family Medicine
DX: Z36.87 Encounter for antenatal screening for uncertain dates (principal)
CPT/HCPCS: 76801

== ENCOUNTER → 2017-10-30 | Outpatient (CLI) | payer OTHER | LOC: HPND 10:40 | PROVIDERS: ATTEND Family Medicine | DX: Z36.82 Encounter for antenatal screening for nuchal translucency (principal) | CPT/HCPCS: 36415; 76813 ==

== ENCOUNTER 2018-05-01 08:28 | Inpatient (IN) ==
[2018-05-01] MEDS ORDERED: ceFAZolin 2 GM Premix Inj 2 GM/50 ML PIGGYBACK IV.SIG PRN (08:54)
--- NOTE | 2018-05-01 08:54 | P.HPOB ---
Date of : 81 Patient Status: Clinical Attending Provider: AlvinoJulieta M Date: 09 Initialization Date: 04/15/18 14:07 History of Present Illness Reason for Consult: Primary Care Physician: No Primary Care Physician History of Present Illness: cc: consult 32 year-old with IUP at 39 presents for section. She has no obstetrical complains. She reports good movement. She denies any leaking of fluid, vaginal bleeding, or painful contractions or cramping. She is planning to have a repeat and hadn't considered . Her previous was for arrest of dilation which she believes because the baby was not positioned correctly. 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 Denies history of abnormal PAPs or STDs. PMH: Anxiety/depression in past, none at this timt PSH: section FH: DM, HTN, epilepsy, childhood asthma Meds: PNV All: NKDA SH: Denies during , history of occasional alcohol about 2 times per week prior to Review of Systems All other systems reviewed negative except as stated in HPI Medications and Allergies Allergies Allergy/AdvReac Type Severity Reaction Status Date / Time No Known Allergies Allergy Uncoded 01/24/17 08:37 Exam Narrative: GENERAL: Well-nourished, well-developed patient. SKIN: Warm and dry. No rashes, masses, lesions noted HEAD: Normocephalic and atraumatic. EYES: No scleral icterus. No injection or drainage. ENT: No nasal drainage noted. Mucous membranes pink. Airway patent. NECK: Supple, trachea midline. No JVD. CARDIOVASCULAR: Regular rate and rhythm without murmurs, gallops, or rubs. RESPIRATORY: Breath sounds equal bilaterally. No accessory muscle use. BREASTS: Deferred ABDOMEN/GI: Abdomen soft, non-tender, bowel sounds present, no rebound, no guarding Gravid GENITOURINARY: Deferred FHT's: Deferred EXTREMITIES: No cyanosis or edema. BACK: Nontender without obvious deformity. No CVA tenderness. NEUROLOGICAL/Psychiatric: Awake and alert x3. Grossly normal memory/affect. Cranial nerves II through XII grossly intact and normal. Grossly normal range of motion. Motor and sensory grossly within normal limits. Five out of 5 muscle strength in all muscle groups. Normal speech. Assessment and Plan - Plan Assessment/Plan: 1. IUP at 39 wks 2. Prior delivery: patient here for consult. Discussed risks, benefits, and alternatives to delivery including a trial of Vaginal After . Discussed that VBACs are considered safe if done in the appropriate setting. Discussed that a successful can prevent potential surgical complications from this surgery and future surgeries. Discussed that the risks of include repeat section that may be emergent in nature or for other maternal or labor indications. Discussed that there is a small risk of uterine rupture of about 1%. Discussed that if uterine rupture occurred, while unlikely, there is a possibility for serious consequences and complications, including but not ruptured to need for hysterectomy, maternal or or brain damage, and other possible risks. We discussed her chance of success using a calculator of approximately Discussed the risk of repeat delivery that include but are not limited to pain, infection, bleeding, injury to other organs like bladder/bowels/nerves/vessels or baby, need for a repeat operation, need for a blood transfusion, need for a hysterectomy, wound infection or breakdown, and other possible risks. Discussed that there are increased risks with each subsequent surgery, including the risk of abnormal placentation with possibility for and placenta accreta/increta/ precreta that would require a hysterectomy with other significant and associated risks. All of the patient's questions were answered. She would like to schedule a delivery at this time and if she changes her mind and would like to will call. Discussed preoperative instructions of NPO, no shaving, and shower with antibacterial soap. Will schedule for 39 weeks. 3. Does not desire bilateral tubal ligation, states her will obtain a vascectomy. 4. History of anxiety and depression: no issues at this time 5. Rh negative 6. Plan RCS
[2018-05-01] MEDS ORDERED: Citric Acid/Sodium Citrate Liq 30 ML UDC PO SCH (09:00)
[2018-05-01 10:12] LABS: Baso % (Auto) 0.5 % (0.0-2.0); Eos % (Auto) 0.6 % (0.0-4.0); Hematocrit 32.1 % (35.0-46.0); Hemoglobin 10.6 gm/dL (11.6-15.3); Lymph # (Auto) 1.2 th/mm3 (1.0-4.8); Lymph % (Auto) 14.1 % (9.0-44.0); Mean Corpuscular HGB Conc 33.1 % (32.0-36.0); Mean Corpuscular Hemoglobin 26.7 pg (27.0-34.0); Mean Corpuscular Volume 80.7 fL (80.0-100.0); Mean Platelet Volume 9.7 fL (7.0-11.0); Mono # (Auto) 0.4 th/mm3 (0.0-0.9); Mono % (Auto) 4.5 % (0.0-8.0); Neut # (Auto) 6.6 th/mm3 (1.8-7.7); Neut % (Auto) 80.3 % (16.0-70.0); Platelet Count 164 th/mm3 (150-450); Red Blood Count 3.97 mil/mm3 (4.00-5.30); Red Cell Distribution Width 15.3 % (11.6-17.2); White Blood Count 8.2 th/mm3 (4.0-11.0)
[2018-05-01 10:34] LABS: Bacteria,Urine Rare /hpf; Bilirubin,Urine Negative (Negative); Clarity,Urine Clear (Clear); Color,Urine Yellow (Yellw/Straw); Glucose,Urine (UA) Negative (Negative); Leukocyte Esterase,Urine Negative (Negative); Mucus,Urine Few /lpf (Occasional); Nitrite,Urine Negative (Negative); Specific Gravity,Urine 1.017 (1.002-1.035); Squamous Epithelial Cell,Urine 6 /hpf (0-5)
[2018-05-01 10:38] LABS: Amphetamine Screen,Urine Neg (Neg); Barbiturate Screen,Urine Neg (Neg); Cannabinoid Screen,Urine Neg (Neg); Cocaine Screen,Urine Neg (Neg)
[2018-05-01 10:44] LABS: Opiate Screen,Urine Neg (Neg)
[2018-05-01] MEDS ORDERED: Morphine Sulfate PF Inj 5 MG/10 ML Ampul ONE (11:02)
[2018-05-01] MEDS ORDERED: Oxytocin 30 Units/500ml Premix 30 UNITS/500 ML BAG IV.SIG ONE (11:10)
[2018-05-01] MEDS ORDERED: Simethicone 80 MG Chew Tablet PO PRN (11:10)
[2018-05-01] MEDS ORDERED: Acetaminophen 325 MG Tablet PO PRN (11:10)
[2018-05-01] MEDS ORDERED: fentaNYL Citrate Inj 100 MCG/2 ML Ampul ONE (11:42)
[2018-05-01] MEDS ORDERED: Influenza (Quadrivalent) Vaccine 0.5 ML Syringe IM ONE (12:00)
--- NOTE | 2018-05-01 12:42 | P.OP ---
- Preoperative Diagnosis (1) Previous section (2) 39 weeks gestation of (3) Rh negative status during - Postoperative Diagnosis (1) 39 weeks gestation of (2) Previous section (3) Rh negative status during (4) Uterine atony Date of procedure: 05/01/18 Implants: Repeat LTCS via Pfannenstiel incision Anesthesia: JEREMY Surgeon: Hemalatha Mcmahon MD Residential Installer: Pretty Berumen Estimated blood loss (mL): 500 IV fluids (mL): 1,200 Urine output (mL): 75 (clear) Pathology: other (placenta) Operation and Findings: Preop diagnosis: at 39wks (EDC 05/08), Previous C/S x1, desires repeat. RH negative. Hx of Anxiety/Depression not on meds. Post Op Diagnosis: same, Uterine atony Findings: VMI, apgars 9/9, BW 7lb. 14oz. Normal uterus, ovaries, and fallopian tubes Complications: Ineffective spinal- required general anesthesia Indication: Patient requested a repeat C/S during her PNC, please see H&P for details. Patient was advised of the risks of surgery including but not limited to visceral and vascular injury, need for transfusion, prolonged hospitalization and reoperation. The Patient desired to proceed, all questions were answered, and consents were signed. Procedure: Patient was taken to the OR with IV fluids running, Ancef was given for infection prophylaxis. Patient was prepped and draped in the dorsal supine position with a leftward tilt. Spinal anesthesia was ineffective as the patient had significant pain on testing prior to starting the surgery. The patient therefore underwent general anesthesia successfully. A Pfannenstiel incision was made with a scalpel, the incision was followed down to the fascia with the scalpel. The rectus muscles were bluntly and the peritoneal cavity was entered bluntly with no adherent bowel and clear fluid noted. The bladder blade was inserted, the bladder flap was created bluntly, the bladder blade was then repositioned to keep bladder out of the operative field. A transverse incision was made in the lower uterine segment with the scalpel with clear amniotic fluid noted. The fetus was was in vertex presentation and the head was delivered without difficulty. There was a nuchal cord x1 that was manually reduced after delivery of the head. The mouth and nose were suctioned. The body was delivered without difficulty. The cord was clamped and cut after delayed cord clamping for 45 seconds. The baby was handed off to the pediatric team. The placenta was delivered with manual extraction. A moist lap sponge was used to remove any remaining placental debris. Due to uterine atony Pitocin 10mU IV given x1. The uterine incision was closed with 1- [address] a CT in a running locked fashion. A second imbricated layer closure was performed on the uterine incision to decrease the risk of future uterine rupture with 1-[address] The uterine incision was noted to have good hemostasis and the uterus was firm on reinspection. The uterus, fallopian tubes, and ovaries were noted to be normal and were returned into the abdominal cavity. Upon reinspection good hemostasis of the uterine incision was once again noted. The fascia was closed with 1-0 PDS suture in a running fashion. The skin was closed with 3-0 Monocryl on a Georges in a subcuticular fashion. The patient tolerated the procedure well, all counts were correct x2. Dr. Berumen was present for the procedure.
[2018-05-01] MEDS ORDERED: HYDROmorphone PF Inj 2 MG/ML Vial ONE (12:46)
[2018-05-01] MEDS ORDERED: Naloxone Inj 0.4 MG/ML Vial IV.PUSH PRN (13:54)
[2018-05-01] MEDS ORDERED: HYDROmorphone PF Inj 1 MG/ML Ampul IV.PUSH PRN (13:56)
[2018-05-01] MEDS ORDERED: Oxytocin 30 Units/500ml Premix 30 UNITS/500 ML BAG IV.SIG PRN (16:10)
[2018-05-01] MEDS ORDERED: Zolpidem Tartrate 5 MG Tablet PO PRN (21:00)
[2018-05-02 05:53] LABS: Baso % (Auto) 0.2 % (0.0-2.0); Eos % (Auto) 0.4 % (0.0-4.0); Hemoglobin 7.8 gm/dL (11.6-15.3); Lymph # (Auto) 1.1 th/mm3 (1.0-4.8); Lymph % (Auto) 15.6 % (9.0-44.0); Mean Corpuscular HGB Conc 33.9 % (32.0-36.0); Mean Corpuscular Hemoglobin 26.7 pg (27.0-34.0); Mean Corpuscular Volume 78.7 fL (80.0-100.0); Mean Platelet Volume 9.5 fL (7.0-11.0); Mono # (Auto) 0.6 th/mm3 (0.0-0.9); Mono % (Auto) 7.6 % (0.0-8.0); Neut # (Auto) 5.6 th/mm3 (1.8-7.7); Neut % (Auto) 76.2 % (16.0-70.0); Platelet Count 121 th/mm3 (150-450); Red Blood Count 2.92 mil/mm3 (4.00-5.30); Red Cell Distribution Width 15.2 % (11.6-17.2); White Blood Count 7.3 th/mm3 (4.0-11.0)
--- NOTE | 2018-05-02 08:07 | P.PNOB ---
Subjective Interval history: 32 year old female s/p C/S at 39 wks gestation, POD1. AFVSS. Patient reports she is feeling well. Bleeding is decreasing and pain is well- controlled. She is breast feeding and bonding well with baby. Ambulating without difficulties. She is tolerating a diet without nausea or vomiting. She has not had a bowel movement. She has not passed gas. Denies chest pain, dysuria , shortness of breath, or calf pain. Objective Vital Signs/I&O: Vital Signs 05/01/18 09:26 05/01/18 09:30 05/01/18 12:35 Temperature 98.5 F 97.6 F Pulse Rate 73 19 L Respiratory Rate 17 19 Blood Pressure 116/59 L 123/79 05/01/18 12:50 05/01/18 13:01 05/01/18 13:07 Temperature Pulse Rate 78 72 Respiratory Rate 18 20 18 Blood Pressure 113/54 L 120/58 L 05/01/18 13:15 05/01/18 13:16 05/01/18 13:29 Temperature Pulse Rate 69 71 Respiratory Rate 18 18 Blood Pressure 113/56 L 05/01/18 13:30 05/01/18 13:31 05/01/18 13:55 Temperature 97.5 F L 97.8 F Pulse Rate 63 Respiratory Rate 18 Blood Pressure 115/56 L 116/62 05/01/18 19:50 05/02/18 00:00 05/02/18 04:20 Temperature 98.9 F 98.9 F 98.9 F Pulse Rate 83 84 84 Respiratory Rate 17 18 20 Blood Pressure 119/67 113/67 126/76 Intake & Output 05/01/18 05/02/18 05/02/18 18:59 06:59 18:59 Intake Total 100 / 100 Balance 100 / 100 Weight 84 kg Intake: IV 100 / 100 Ancef 2 GM Premix Inj 2 gm In 100 / 100 50 ml @ 100 mls/hr IV.SIG 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 CARDIOVASCULAR: Regular rate and rhythm without murmurs, gallops, or rubs. RESPIRATORY: Breath sounds equal bilaterally. No accessory muscle use. ABDOMEN/GI: Abdomen soft, non-tender, bowel sounds present. Incision: covered in bandage Fundus: Firm, non-tender at umbilicus. GENITOURINARY: Light to moderate bleeding. EXTREMITIES: No cyanosis or edema, non-tender, without signs of DVT. 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 SALES REPRESENTATIVE [facility] Stop: 05/05/18 08:59 Last Admin: 05/01/18 10:59 Dose: 30 ml Diphenhydramine HCl (Benadryl Inj) 25 mg IV.PUSH Q6H PRN PRN Reason: MILD TO MODERATE ITCHING Stop: 05/02/18 13:53 Diphenhydramine HCl (Benadryl) 50 mg PO Q6H PRN PRN Reason: MILD TO MODERATE ITCHING Stop: 05/02/18 13:53 Diphtheria/Pertussis/Tetanus Vacc (Boostrix Vaccine Inj) 0.5 ml IM .ONCE ONE Stop: 05/02/18 16:01 Ferrous Sulfate (Ferosul) 325 mg PO BID@1200,1700 [facility] Cefazolin Sodium/Dextrose (Ancef 2 Gm Premix Inj) 2 gm in 50 mls @ 100 mls/hr IV.SIG CONSTRUCTION SALES REPRESENTATIVE PRN PRN Reason: ON-CALL Stop: 05/05/18 08:53 Last Infusion: 05/01/18 13:08 Dose: Infused Lactated Ringer's (Lr 1000 Ml Inj) 1,000 mls @ 100 mls/hr IV.CONT .Q10H [facility] Stop: 05/02/18 12:09 Last Admin: 05/02/18 04:48 Dose: Not Given Oxytocin (Pitocin 30 Units/Ns 500 Ml Premix) 30 units in 500 mls @ 100 mls/hr IV.SIG UNSCH PRN PRN Reason: Heavy bleeding Ibuprofen (Motrin) 800 mg PO Q8H PRN PRN Reason: cramping Last Admin: 05/02/18 04:47 Dose: 800 mg Ketorolac Tromethamine (Toradol Inj) 30 mg IM Q6H PRN PRN Reason: SEE LABEL COMMENTS Stop: 05/02/18 11:09 Last Admin: 05/01/18 22:44 Dose: 30 mg Measles/Mumps/Rubella Vaccine Live (M-M-R Ii Vaccine Inj) 0.5 ml SQ .ONCE ONE Stop: 05/02/18 16:01 Miscellaneous Information ([facility]) 1 each OTHER UNSCH PRN PRN Reason: SEE LABEL COMMENTS Stop: 05/02/18 11:10 Miscellaneous Information ([facility]) 1 each OTHER UNSCH PRN PRN Reason: SEE LABEL COMMENTS Stop: 05/02/18 11:10 Naloxone HCl (Narcan Inj) 0.4 mg IV.PUSH UNSCH PRN PRN Reason: SEE LABEL COMMENTS Stop: 05/02/18 13:53 Ondansetron HCl (Zofran Inj) 4 mg IV.PUSH Q6H PRN PRN Reason: NAUSEA OR VOMITING Oxycodone/Acetaminophen (Percocet 5/325 Mg) 1 tab PO Q4H PRN PRN Reason: PAIN SCALE 3 TO 5 Last Admin: 05/02/18 04:48 Dose: 1 tab Oxycodone/Acetaminophen (Percocet 5/325 Mg) 2 tab PO Q4H PRN PRN Reason: PAIN SCALE 6 TO 10 Simethicone (Mylicon Chew) 80 mg PO QID PRN PRN Reason: FLATULENCE Sodium Chloride (Ns Flush) 2 ml IV.FLUSH BID SHARRI Last Admin: 05/02/18 01:06 Dose: Not Given Sodium Chloride (Ns Flush) 2 ml IV.FLUSH PRN PRN PRN Reason: FLUSH AFTER USING IV ACCESS Zolpidem Tartrate (Ambien) 5 mg PO HS PRN PRN Reason: INSOMNIA Assessment and Plan - Diagnosis (1) Delivery by section of full-term Code(s): O82 - Encounter for delivery without indication Status: Acute - Plan 32 yo female s/p C/S, POD 1 - AFVSS - Continue routine care - Motrin and Percocet PRN pain - Encourage OOB - Pelvic rest x 6 wks. Will need 1 week incision check. - Contraception: IUD, will discuss with OB provider - Anticipate D/C 1-[address] Berumen
[2018-05-02] MEDS: Ferrous Sulfate 325 MG Tablet PO SCH ×2 (11:34→17:57)
[2018-05-02] MEDS ORDERED: Diphtheria/Tetanus/Pertussis Vaccine Inj 0.5 ML Syringe IM ONE (16:00)
[2018-05-02] MEDS ORDERED: Measles/Mumps/Rubella Vaccine Inj 0.5 ML Vial SQ ONE (16:00)
[2018-05-02 17:35] VITALS: PULSE 85; RESP 18
--- NOTE | 2018-05-03 08:04 | P.PNOB ---
Subjective Post day: 2 Interval history: Patient's pain is well-controlled. Patient reports eating and drinking without any nausea or vomiting. Patient reports minimal bleeding. Patient has passed gas but no bowel movements. Patient is walking without lower extremity pain or shortness of breath. Objective Vital Signs/I&O: Vital Signs 05/02/18 17:34 05/02/18 21:00 Temperature 98.8 F 98.8 F Pulse Rate 85 85 Respiratory Rate 18 18 Blood Pressure 107/62 104/55 L Result Diagrams: 05/02/18 05:19 Objective Remarks: GENERAL: Well-nourished, well-developed patient. CARDIOVASCULAR: Regular rate and rhythm without murmurs, gallops, or rubs. RESPIRATORY: Breath sounds equal bilaterally. No accessory muscle use. ABDOMEN/GI: Abdomen soft, non-tender. Fundus: Firm, non-tender at umbilicus. GENITOURINARY: Light to moderate bleeding. EXTREMITIES: No cyanosis or edema, non-tender, without signs of DVT. 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 [facility] Stop: 05/05/18 08:59 Last Admin: 05/01/18 10:59 Dose: 30 ml Ferrous Sulfate (Ferosul) 325 mg PO BID@1200,1700 [facility] Last Admin: 05/02/18 17:57 Dose: 325 mg Cefazolin Sodium/Dextrose (Ancef 2 Gm Premix Inj) 2 gm in 50 mls @ 100 mls/hr IV.SIG WASHING MACHINE ASSEMBLER PRN PRN Reason: ON-CALL Stop: 05/05/18 08:53 Last Infusion: 05/01/18 13:08 Dose: Infused Oxytocin (Pitocin 30 Units/Ns 500 Ml Premix) 30 units in 500 mls @ 100 mls/hr IV.SIG UNSCH PRN PRN Reason: Heavy bleeding Ibuprofen (Motrin) 800 mg PO Q8H PRN PRN Reason: cramping Last Admin: 05/03/18 00:06 Dose: 800 mg Ondansetron HCl (Zofran Inj) 4 mg IV.PUSH Q6H PRN PRN Reason: NAUSEA OR VOMITING Oxycodone/Acetaminophen (Percocet 5/325 Mg) 1 tab PO Q4H PRN PRN Reason: PAIN SCALE 3 TO 5 Last Admin: 05/03/18 00:06 Dose: 1 tab Oxycodone/Acetaminophen (Percocet 5/325 Mg) 2 tab PO Q4H PRN PRN Reason: PAIN SCALE 6 TO 10 Simethicone (Mylicon Chew) 80 mg PO QID PRN PRN Reason: FLATULENCE Sodium Chloride (Ns Flush) 2 ml IV.FLUSH BID SHARRI Last Admin: 05/03/18 03:06 Dose: Not Given Sodium Chloride (Ns Flush) 2 ml IV.FLUSH PRN PRN PRN Reason: FLUSH AFTER USING IV ACCESS Zolpidem Tartrate (Ambien) 5 mg PO HS PRN PRN Reason: INSOMNIA Assessment and Plan - Diagnosis (1) Delivery by section of full-term infant Code(s): O82 - Encounter for delivery without indication Status: Acute - Plan 32 yo female s/p C/S, POD 2 - AFVSS - Continue routine care - Motrin and Percocet PRN pain - Encourage OOB - Pelvic rest x 6 wks. Will need 1 week incision check. - Contraception: IUD, will discuss with OB provider - Anticipate D/C today emma Sutherland
[2018-05-03 09:02] VITALS: BP 110/60; TEMP 98
[2018-05-03] MEDS: Ferrous Sulfate 325 MG Tablet PO SCH (12:29)
== END 2018-05-03 15:13 | disposition home or self-care (01) ==
LOC: H2E 08:28 → H1EA 13:41
PROVIDERS: ADMIT Obstetrics & Gynecology; ATTEND Obstetrics & Gynecology